=== PATIENT | female | born 1990 | race Caucasian/White ===

== ENCOUNTER 2023-09-09 06:10 | Day surgery (SDC) | payer BC, SELFPAY ==
[2023-09-09] VITALS (15 sets, daily range): BP systolic 119–134; BP diastolic 60–97; PULSE 53–81; RESP 12–16; TEMP 36.2–36.5; O2SAT 92–98; BMI 34.0
[2023-09-09] MEDS: LACTATED RINGERS 1000 ML 1,000 ML 100 ML IV ×2 (07:00→08:19)
[2023-09-09] MEDS: SODIUM CHLORIDE 0.9 % (FLUSH) 10 ML SYRINGE IVF (07:00)
[2023-09-09 07:14] LABS: Ur HCG Qualitative* Negative (Negative)
--- NOTE | 2023-09-09 07:35 | W.PM.H&PU ---
History & Physical Update History & Physical Update H&P Reviewed and patient assessed: No changes noted
[2023-09-09] MEDS: CEFAZOLIN 2 GM INJ IVP (07:45)
[2023-09-09] MEDS: BUPIVACAINE 0.5% 30 ML INJECTION (08:49)
--- NOTE | 2023-09-09 08:59 | P.GSOP_ITS ---
Operative Note Pre-op diagnosis: Biliary colic Post-op diagnosis: Same Type of Procedure: Laparoscopic cholecystectomy Indications: Patient is a 32-year-old female who presented to clinic with clinical workup and symptoms consistent with biliary colic versus chronic cholecystitis. Risks and benefits of operative intervention were discussed at length with the patient. Risks included but was not limited to: Bleeding, infection, risk of damage to surrounding structures, possible need for additional procedures, possible need to convert to an open operation and postoperative complications such as pneumonia, pulmonary emboli or LA. All questions and concerns were addressed with the patient agreeing to proceed. Procedure Description: After discussing the risks and benefits of the procedure, the patient signed informed consent.? The operative site was marked and the patient was brought to the operating room and placed on the operating table in supine position.? Care was taken to pad the patient's pressure points.?? The patient was then intubated by anesthesia.?? The operative site was then prepped and draped in the usual st erile fashion.? A time-out was then performed. Entrance to the abdomen was gained via a 5 mm Visiport in the left upper quadrant. The abdomen was insufflated and briefly surveyed for signs of injury. There was none. 11 mm umbilical port was placed as well as 2 working ports along the right costal margin. Patient was then placed in reverse Trendelenburg position with the right side up. The gallbladder fundus was grasped and retracted cephalad. The duodenum was densely adherent to the gallbladder body. This was carefully dissected off with laparoscopic scissors. After dissection the portion of the duodenum was carefully examined with no evidence of injury. The infundibulum was grasped. A combination of hook cautery and blunt dissection was used to carefully dissect out the cystic duct and artery until they could clearly be seen entering the gallbladder without any intervening structures. The gallbladder was dissected off the cystic plate to achieve the critical view. Once this was achieved the cystic duct and artery were each clipped with 2 clips proximally and 1 clip distally and transected with the scissors. The gallbladder was then taken off of the liver bed. And removed from the abdomen using an Endo-Catch bag. The gallbladder bed was surveyed for hemostasis. The ports were then removed under direct vision. The umbilical port fascia was closed with 0 Vicryl. The skin was closed with absorbable subcuticular suture. Instrument sponge and needle counts were correct at the end of the case. The patient was then woken and transferred to the PACU in stable condition. Findings: Adhesions on the gallbladder body and duodenum. Anesthesia: GETA Surgeon: Yoko Morin MD Estimated blood loss (mL): 5 Specimen: Gallbladder Condition: stable Disposition: PACU Date of procedure: 09/09/23
--- NOTE | 2023-09-09 09:07 | W.ANESCHARGE ---
Anesthesia Charges Start Date/Time Anesthesia Start Date: 09/09/23 Anesthesia Start Time: 07:35 Stop Date/Time Anesthesia Stop Date: 09/09/23 Anesthesia Stop Time: 09:06
[2023-09-09] MEDS: fentaNYL 100 MCG/2 ML inj 50 MCG IVP ×2 (09:21→09:27)
[2023-09-09] MEDS: HYDROCODONE-ACETAMIN 5-325 MG 1 TAB PO (09:56)
[2023-09-09] MEDS: ONDANSETRON 2 MG/ML inj 4 MG IVP (10:50)
== END 2023-09-09 11:03 | disposition home or self-care (01) ==
PROVIDERS: Anesthesiology; PCP Student in an Organized Health Care Education/Training Program; Visit Provider Surgery
PROC: 0FT44ZZ Resection of Gallbladder, Percutaneous Endoscopic Approach (ICD-10-PCS; CPT 47562; principal; 2023-09-09 07:30)
DX: K80.20 Calculus of gallbladder without cholecystitis without obstruction (principal)
CPT/HCPCS: 47562; 00790; 81025; 88304; A9270; J0330; J0665; J0690; J1100; J1170; J1885; J2250; J2405; J2704; J2710; J3010; J7120